=== PATIENT | male | born 1985 | race Native Hawaiian/Other Pacific Islander ===

== ENCOUNTER 2017-03-23 20:20 | Emergency (ER) | payer MEDICAID ==
[2017-03-23 20:24] VITALS: BP 151/89; PULSE 82; RESP 16; TEMP 97; O2SAT 100
--- NOTE | 2017-03-23 21:09 | ED PDOC ---
HPI: Psych/Substance Abuse Time Seen by Provider: 03/23/17 21:07 Chief Complaint (Nursing): Psychiatric Evaluation Chief Complaint (Provider): psych eval History Per: Patient (31 y/o male brought to ED by police for evaluation. Patient has been from x 2 months and she has not returned his calls. Patient misses her and was speaking to friend on phone about this. Friend attempted to call him back but he did not tow picker and friend became concerned. Friend called police to investigate. Patient denies any SI/HI or previous depression or suicial ttempt.) Past Medical History Reviewed: Historical Data, Nursing Documentation, Vital Signs Vital Signs: Last Vital Signs Temp 97.0 F L 03/23/17 20:21 Pulse 82 03/23/17 20:21 Resp 16 03/23/17 20:21 BP 151/89 H 03/23/17 20:21 Pulse Ox 100 03/23/17 20:21 - Family History Family History: States: No Known Family Hx - Allergies Allergies/Adverse Reactions: Allergies Allergy/AdvReac Type Severity Reaction Status Date / Time No Known Allergies Allergy Verified 03/23/17 20:22 Review of Systems ROS Statement: Except As Marked, All Systems Reviewed And Found Negative Physical Exam - Reviewed Nursing Documentation Reviewed: Yes Vital Signs Reviewed: Yes - Physical Exam Appears: Positive for: Well, Non-toxic, No Acute Distress Head Exam: Positive for: ATRAUMATIC, NORMAL INSPECTION, NORMOCEPHALIC Skin: Positive for: Normal Color, Warm, DRY Eye Exam: Positive for: EOMI, Normal appearance, PERRL ENT: Positive for: Normal ENT Inspection Neck: Positive for: Normal, Painless ROM Cardiovascular/Chest: Positive for: Regular Rate, Rhythm Respiratory: Positive for: CNT, Normal Breath Sounds Gastrointestinal/Abdominal: Positive for: Normal Exam, Bowel Sounds, Soft Back: Positive for: Normal Inspection Extremity: Positive for: Normal ROM Neurologic/Psych: Positive for: Alert, Oriented - ECG O2 Sat by Pulse Oximetry: 100 - Progress ED Course And Treament: SEEN BY CRISIS D/W DR. SELLERS DIAGNOSIS ADJUSTMENT DISORDER Disposition - Clinical Impression Clinical Impression: Adjustment disorder - Patient ED Disposition Is Patient to be Admitted: No - Disposition Disposition: Routine/Home Disposition Time: 21:34 Condition: FAIR Instructions: Stress (ED) Forms: [employer] (Romanian)
== END 2017-03-23 21:54 | disposition home or self-care (01) ==
LOC: H.ER 20:20
DX: F43.20 Adjustment disorder, unspecified (principal)